=== PATIENT | male | born 1975 | race Caucasian/White ===

== ENCOUNTER 2020-03-23 05:32 | Inpatient (IN) | payer OTHER ==
[2020-03-18 09:32] LABS: ABSOLUTE EOSINOPHILS # (AUTO) 0.1 10^3/uL (0.0-0.6); ABSOLUTE LYMPHOCYTES (AUTO) 1.3 10^3/uL (0.5-4.7); ABSOLUTE MONOCYTES (AUTO) 0.5 10^3/uL (0.1-1.4); ABSOLUTE NEUT (AUTO) 2.7 10^3/uL (1.7-8.2); BASOPHILS % (AUTO) 0.8 % (0-2); EOSINOPHILS % (AUTO) 1.6 % (0-6); HEMATOCRIT 44.9 % (37.9-51.0); HEMOGLOBIN 15.3 g/dL (13.5-17.0); LYMPHOCYTES % (AUTO) 28.4 % (13-45); MEAN CORPUSCULAR VOLUME 88 fl (80-97); MONOCYTES % (AUTO) 11.6 % (3-13); PLATELET COUNT 188 10^3/uL (150-450); RED BLOOD COUNT 5.08 10^6/uL (4.35-5.55); RED CELL DISTRIBUTION WIDTH 13.2 % (11.5-14.0); SEGMENTED NEUTROPHILS % (AUTO) 57.6 % (42-78); TOTAL CELLS COUNTED % (AUTO) 100 %; WHITE BLOOD COUNT 4.7 10^3/uL (4.0-10.5)
[2020-03-18 09:57] LABS: ANION GAP 8 (5-19); BLOOD UREA NITROGEN 14 mg/dL (7-20); CALCIUM 9.4 mg/dL (8.4-10.2); CARBON DIOXIDE 30 mmol/L (22-30); CHLORIDE 103 mmol/L (98-107); GLUCOSE 96 mg/dL (75-110); POTASSIUM 4.5 mmol/L (3.6-5.0)
--- NOTE | 2020-03-18 10:25 | EKG REPORT ---
SEVERITY:- ABNORMAL ECG - SINUS BRADYCARDIA LEFT ANTERIOR FASCICULAR BLOCK PROBABLE LEFT VENTRICULAR HYPERTROPHY ABNORMAL T, CONSIDER ISCHEMIA, INFERIOR LEADS : Confirmed by: Kezia Farah MD 18-Mar-2020 10:24:06
[2020-03-23] MEDS ORDERED: CEFAZOLIN 2 GM/D5W RTU 2 GM/50 ML RTUPB IV ONE (06:38)
[2020-03-23] MEDS ORDERED: HYDROMORPHONE HCL INJ/PF 2 MG/ML AMPULE ONE (07:11)
[2020-03-23] MEDS ORDERED: LIDOCAINE 2% INJ-PF (20 MG/ML) 10 ML AMPUL ONE (07:11)
[2020-03-23] MEDS ORDERED: DEXAMETHASONE SOD PHOSPHATE INJ 4 MG/1 ML VIAL ONE (07:12)
[2020-03-23] MEDS ORDERED: ONDANSETRON HCL INJ/PF 4 MG/2 ML SDV ONE (07:12)
[2020-03-23] MEDS ORDERED: DEXMEDETOMIDINE INJ 80 MCG/20 ML VIAL IV ONE (07:12)
[2020-03-23] MEDS ORDERED: MIDAZOLAM 2 MG/2 ML INJ ONE (07:12)
[2020-03-23] MEDS ORDERED: PROPOFOL INJ 200 MG/20 ML VIAL IV ONE (07:12)
[2020-03-23] MEDS ORDERED: FENTANYL CITRATE INJ/PF 100 MCG/2 ML AMPUL ONE (07:12)
[2020-03-23 07:29] LABS: HEMATOCRIT 45.9 % (37.9-51.0); HEMOGLOBIN 15.6 g/dL (13.5-17.0); MEAN CORPUSCULAR HGB CONC 33.9 g/dL (32.0-36.0); MEAN CORPUSCULAR VOLUME 89 fl (80-97); PLATELET COUNT 186 10^3/uL (150-450); RED BLOOD COUNT 5.18 10^6/uL (4.35-5.55); RED CELL DISTRIBUTION WIDTH 13.2 % (11.5-14.0); WHITE BLOOD COUNT 4.7 10^3/uL (4.0-10.5)
[2020-03-23] MEDS ORDERED: DIPHENHYDRAMINE HCL 50 MG/ML VIAL IV PRN (08:54)
[2020-03-23] MEDS ORDERED: FENTANYL CITRATE INJ/PF 100 MCG/2 ML AMPUL IV PRN ×3 (08:54)
[2020-03-23] MEDS ORDERED: MEPERIDINE HCL/PF INJ 25 MG/1 ML DISP.SYRIN IV PRN (08:54)
[2020-03-23] MEDS ORDERED: PROMETHAZINE HCL INJ 25 MG/1 ML VIAL IV PRN ×2 (08:54)
[2020-03-23] MEDS ORDERED: OXYCODONE-ACETAMINOPHEN 5-325 MG TABLET PO PRN ×2 (08:54)
[2020-03-23] MEDS ORDERED: MORPHINE SULFATE 10 MG/ML INJ IV PRN (08:54)
--- NOTE | 2020-03-23 14:07 | Operative Report ---
Operative Report DATE OF SURGERY: 03/23/20 PREOPERATIVE DIAGNOSIS: Right renal mass POSTOPERATIVE DIAGNOSIS: RAIMUNDO OPERATION: Right radical nephrectomy SURGEON: KATLIN LEIJA 1ST SLIP FEEDER: BRIDGER VAZQUEZ ANESTHESIA: GA TISSUE REMOVED OR ALTERED: Right kidney COMPLICATIONS: none ESTIMATED BLOOD LOSS: 50 INTRAOPERATIVE FINDINGS: Right posterior lower pole mass in abutting but not involving ureter PROCEDURE: The patient was met in preop hold and marked on the right. Written consent was confirmed. He was taken to the OR and placed supine where general anesthesia was administered. An arterial line was placed by anesthesia. A Calderon catheter was placed with return of urine. He was repositioned into left lateral decubitus and the bed flexed. A gel roll was placed behind his back and an axillary roll below his axilla. His left leg was bent and right leg slightly flexed on top of pillows. The left ankle was padded. He was secured to the table with silk tape and towels. His left arm was flexed in a neutral position and rested on a airplane and secured. A timeout was called ensuring correct patient, laterality and procedure. Insufflation was obtained with Veress needle in the right lower quadrant. A camera port was placed in the midclavicular line at the level of twelfth rib. The remainder of the ports were placed under direct vision. An 8mm robotic port was placed subcostal midclavicular. The left arm port was placed in the right lower quadrant and another port between iliac crest and 11th rib. A 5mm assist was placed subxiphoid and a 12mm Airseal port placed in midline above umbilicus. The robot was docked over the right shoulder. At this point there was a warning of an airleak on the airseal device and we appeared to lose visibility of the kidney with bowel obscuring. We checked all ports and could not find a leak. The abdomen still felt taught. We were concerned that the Airseal port may be insufflating bowel. The insufflation tubing was placed back on the camera port and the robot undocked. A 5mm camera was placed through the lateral port and bowel inspected. There was a tongue of omentum in the airseal port and the was reduced. The area around the trocar was inspected and there did not appear to be any bowel injury succus, or bleeding. We redocked the robot and proceeded. The tubing was placed back to the Airseal port with no further warning of leak. The colon was reflected medially and the duodenum kocherized. The renal vein was seen entering from above. Gerota's fascia was entered below the lower pole and the ureter identified. The ureter was elevated and the kidney freed of its posterior attachments. Using meticulous dissection, we moved towards hilum. One small branch vein directly off inferior vena cava was ligated with a titanium clip. Two renal arteries were identified adjacent to one another. After dissecting the entire hilum, no further vessels were encountered. The renal vein was isolated and the two arteries were dissected free of one another. Next the Gerota's was entered on the anterior surface of the kidney and the fat reflected off in a capsular plane. The mass was eventually located in the posterior lower pole uncus immediately adjacent to the ureter. There were two smaller projections protruding from a larger mass without distinct exophytic borders. The entire kidney was now freed from Gerotas. In doing so the lateral cyst was entered. It had clear serous fluid and this was drained with suction. The adrenal was adherent to capsule. The kidney was reflected anteriorly and provided a good view of the tumor. After thoroughly evaluated the location of the mass, I decided that its location and close approximation to the ureter precluded safe resection with clear margins impractical. We therefore elected to proceed with radical nephrectomy. The 2 arteries were ligated and divided with a 45mm white load and an EndoGIA stapler. The vein was taken with another load. I attempted to reflect the adrenal off the kidney but it was densely adherent. Therefore, it was divided along it renal aspect with another load of EndoGIA. The ureter was dividied between titanium clips with 2 distally. The specimen was freed from its remaining attachments and placed in a bag. There was some minor oozing from the adrenal gland. Otherwise hemostasis was excellent. At this point, the Airseal developed a critical error code and indicated replacement needed. A new insufflator was brought in and standard insufflation obtained again. It is unknown whether this related to the initial air leak code at the beginning of the case. After bipolar cautery on the divided surface of adrenal, surgicel and floseal was applied with good effect. The bowel adjacent to the Airseal port was again inspected without any injury, bleeding or succus noted. The robot was undocked and the abdomen desufflated. An upper midline incision was made incorporating the airseal port. This was deepened through subcutaneous tissue and fascia divided. The specimen was delivered and passed off for permanent analysis. All of the wounds were infiltrated with 0.25% marcaine. The midline fascia was closed with 2 0-PDS sutures tied in the middle. The wound was closed in layers. The skin of all wounds was closed with monocryl and dermabond was applied. All counts were correct. There were no complications. The patient was awoken from anesthesia and transferred to the PACU in stable condition
[2020-03-24 04:52] LABS: HEMATOCRIT 38.1 % (37.9-51.0); MEAN CORPUSCULAR HEMOGLOBIN 30.9 pg (27.0-33.4); MEAN CORPUSCULAR HGB CONC 35.1 g/dL (32.0-36.0); MEAN CORPUSCULAR VOLUME 88 fl (80-97); PLATELET COUNT 151 10^3/uL (150-450); RED CELL DISTRIBUTION WIDTH 13.4 % (11.5-14.0)
[2020-03-24 05:03] LABS: RED BLOOD COUNT 4.32 10^6/uL (4.35-5.55)
[2020-03-24 05:04] LABS: HEMOGLOBIN 13.4 g/dL (13.5-17.0); WHITE BLOOD COUNT 11.5 10^3/uL (4.0-10.5)
[2020-03-24 05:08] LABS: ANION GAP 6 (5-19); BLOOD UREA NITROGEN 19 mg/dL (7-20); CARBON DIOXIDE 27 mmol/L (22-30); CHLORIDE 108 mmol/L (98-107); GLUCOSE 124 mg/dL (75-110); POTASSIUM 4.5 mmol/L (3.6-5.0)
--- NOTE | 2020-03-24 07:19 | PDOC PROGRESS REPORT ---
Subjective Progress Note for:: 03/24/20 Subjective:: Doing ok. c/o pain at midline wound. Ate a little last night. Taking fluids PO. OOBTC but hasn't walked. Reason For Visit: RIGHT RENAL MASS Physical Exam Vital Signs: Temp Pulse Resp BP Pulse Ox 98.4 F 61 16 113/52 L 98 03/24/20 03:25 03/24/20 03:25 03/24/20 03:25 03/24/20 03:25 03/24/20 03:25 Intake & Output 03/23/20 03/24/20 03/25/20 06:59 06:59 06:59 Intake Total 0 4500 Output Total 5425 Balance 0 -925 Weight 97.8 kg Head exam: PRESENT: atraumatic Eye exam: PRESENT: EOMI Respiratory exam: PRESENT: unlabored Pulses: PRESENT: normal radial pulses GI/Abdominal exam: PRESENT: tenderness - wounds well approximated, approp ttp. ABSENT: distended, guarding Gentrourinary exam: PRESENT: indwelling catheter - clear straw Results Laboratory Results: 03/24/20 04:14 03/24/20 04:14 03/23/20 03/23/20 03/24/20 06:00 06:00 04:14 WBC 4.7 11.5 H D RBC 5.18 4.32 L Hgb 15.6 13.4 L D Hct 45.9 38.1 MCV 89 88 MCH 30.0 30.9 MCHC 33.9 35.1 RDW 13.2 13.4 Plt Count 186 151 Sodium Potassium Chloride Carbon Dioxide Anion Gap BUN Creatinine Est GFR ( Amer) Glucose Calcium Blood Type AB POSITIVE Antibody Screen NEGATIVE 03/24/20 04:14 WBC RBC Hgb Hct MCV MCH MCHC RDW Plt Count Sodium 141.1 Potassium 4.5 Chloride 108 H Carbon Dioxide 27 Anion Gap 6 BUN 19 Creatinine 1.65 H Est GFR ( Amer) 55 L Glucose 124 H Calcium 9.0 Blood Type Antibody Screen Assessment & Plan - Diagnosis (1) Right renal mass Is this a current diagnosis for this admission?: Yes Plan: POD1 R radical nx -Dc toscano -Dc IVF -IS -OOB and walking -Anticipate discharge later today - Time Time Spent with patient: 15min Anticipated Discharge Disposition: Home, Self Care Anticipated Discharge Timeframe: within 24 hours - Inpatient Certification Based on my medical assessment, after consideration of the patient's comorbidities, presenting symptoms, or acuity I expect that the services needed warrant INPATIENT care.: No I certify that my determination is in accordance with my understanding of Medicare's requirements for reasonable and necessary INPATIENT services [42 CFR 412.3e].: Yes - Plan Summary Plan Summary: .
--- NOTE | 2020-03-24 15:44 | PDOC DISCHARGE SUMMARY ---
General - Admit/Disc Date/PCP Admission Date/Primary Care Provider: 03/23/20 05:32 Jeff Ferrari MD Discharge Date: 03/24/20 - Discharge Diagnosis Final Diagnosis: Right renal mass - Assessment Summary: Underwent uncomplicated robot assisted laparoscopic radical nephrectomy on 03/23/20. Hospital stay unremarkable. Calderon removed POD1. - Additional Information Resuscitation Status: Full Code Discharge Diet: Regular Discharge Activity: Activity As Tolerated Referrals: BRIAN GARDINER MD [Primary Care Provider] - Home Medications: Levothyroxine Sodium [Synthroid] 175 mcg PO Q6AM 03/18/20 Loratadine [Claritin] 10 mg PO DAILYP PRN 03/18/20 Melatonin [Melatin] 3 mg PO HSP PRN 03/18/20 Pantoprazole Sodium [Protonix [address] Tablet] 20 mg PO DAILY 03/18/20 Liothyronine Sodium [Cytomel] 5 mcg PO DAILY 03/23/20 Additional Information: You will be called to schedule a follow up appointment. History of Present Illiness History of Present Illness: MARSHA LOPEZ is a 44 year old male Physical Exam Vital Signs: Temp Pulse Resp BP Pulse Ox 97.9 F 57 L 16 127/65 H 96 03/24/20 12:08 03/24/20 12:08 03/24/20 12:08 03/24/20 12:08 03/24/20 12:08 Intake & Output 03/23/20 03/24/20 03/25/20 06:59 06:59 06:59 Intake Total 0 4500 1120 Output Total 5425 625 Balance 0 -925 495 Weight 97.8 kg Results Laboratory Results: WBC 11.5 10^3/uL (4.0-10.5) H D 03/24/20 04:14 RBC 4.32 10^6/uL (4.35-5.55) L 03/24/20 04:14 Hgb 13.4 g/dL (13.5-17.0) L D 03/24/20 04:14 Hct 38.1 % (37.9-51.0) 03/24/20 04:14 MCV 88 fl (80-97) 03/24/20 04:14 MCH 30.9 pg (27.0-33.4) 03/24/20 04:14 MCHC 35.1 g/dL (32.0-36.0) 03/24/20 04:14 RDW 13.4 % (11.5-14.0) 03/24/20 04:14 Plt Count 151 10^3/uL (150-450) 03/24/20 04:14 Lymph % (Auto) 28.4 % (13-45) 03/18/20 09:01 [place] % (Auto) 11.6 % (3-13) 03/18/20 09:01 Eos % (Auto) 1.6 % (0-6) 03/18/20 09:01 Baso % (Auto) 0.8 % (0-2) 03/18/20 09:01 Absolute Neuts (auto) 2.7 10^3/uL (1.7-8.2) 03/18/20 09:01 Absolute Lymphs (auto) 1.3 10^3/uL (0.5-4.7) 03/18/20 09:01 Absolute Monos (auto) 0.5 10^3/uL (0.1-1.4) 03/18/20 09:01 Absolute Eos (auto) 0.1 10^3/uL (0.0-0.6) 03/18/20 09:01 Absolute Basos (auto) 0.0 10^3/uL (0.0-0.2) 03/18/20 09:01 Seg Neutrophils % 57.6 % (42-78) 03/18/20 09:01 Sodium 141.1 mmol/L (137-145) 03/24/20 04:14 Potassium 4.5 mmol/L (3.6-5.0) 03/24/20 04:14 Chloride 108 mmol/L (98-107) H 03/24/20 04:14 Carbon Dioxide 27 mmol/L (22-30) 03/24/20 04:14 Anion Gap 6 (5-19) 03/24/20 04:14 BUN 19 mg/dL (7-20) 03/24/20 04:14 Creatinine 1.65 mg/dL (0.52-1.25) H 03/24/20 04:14 Est GFR ( Amer) 55 (>60) L 03/24/20 04:14 Est GFR (MDRD) Non-Af 45 (>60) L 03/24/20 04:14 Glucose 124 mg/dL (75-110) H 03/24/20 04:14 Calcium 9.0 mg/dL (8.4-10.2) 03/24/20 04:14 COVID-19 Source NASOPHARYNGEAL 03/18/20 09:00 COVID-19 (MINO) NOT DETECTED 03/18/20 09:00 Blood Type AB POSITIVE 03/23/20 06:00 Blood Type Confirm AB POSITIVE 03/23/20 07:20 Antibody Screen NEGATIVE 03/23/20 06:00 Crossmatch See Detail 03/23/20 06:00
[2020-03-24 16:58] VITALS: BP 138/81
== END 2020-03-24 16:50 | disposition home or self-care (01) | DRG 658 ==
LOC: INOR 05:32 → 5 14:46
PROC: 8E0W4CZ Robotic Assisted Procedure of Trunk Region, Percutaneous Endoscopic Approach (ICD-10-PCS; 2020-03-23)
PROC: 0TB04ZZ Excision of Right Kidney, Percutaneous Endoscopic Approach (ICD-10-PCS; principal; 2020-03-23 07:30)
DX: D49.511 Neoplasm of unspecified behavior of right kidney (principal); K21.9 Gastro-esophageal reflux disease without esophagitis; G47.00 Insomnia, unspecified; E89.0 Postprocedural hypothyroidism; Y83.6 Removal of other organ (partial) (total) as the cause of abnormal reaction of the patient, or of later complication, without mention of misadventure at the time of the procedure; Z11.59 Encounter for screening for other viral diseases; Z79.899 Other long term (current) drug therapy; Z79.890 Hormone replacement therapy; Z85.850 Personal history of malignant neoplasm of thyroid
CPT/HCPCS: 36415; 80048; 85025; 85027; 862; 86850; 86900; 86901; 86920; 87635; 88307; 93005; 93010; 94799; C1758; C9803; J0690; J1100; J1170; J2250; J2370; J2405; J2704; J2710; J3010; J3490; J7120